=== PATIENT | female | born 1965 | race African-American/Black ===

== ENCOUNTER 2024-08-31 14:17 | Emergency (ER) | payer SELFPAY ==
[2024-08-31 14:28] VITALS: PULSE 65; RESP 18; TEMP 97.5
[2024-08-31 14:48] VITALS: O2SAT 95
[2024-08-31] MEDS: FAMOTIDINE 20 MG/2 ML VIAL IV ONE (15:38)
[2024-08-31] MEDS: ACETAMINOPHEN 325 MG TAB PO ONE (15:38)
[2024-08-31] MEDS: ONDANSETRON HCL INJ 2MG/ML 2ML 2 MG/ML VIAL IV PRN (15:38)
== END 2024-08-31 16:01 | disposition other institution (70) ==
LOC: FSED 14:22
DX: I63.9 Cerebral infarction, unspecified (principal); R29.810 Facial weakness; R47.81 Slurred speech; R53.1 Weakness; I10 Essential (primary) hypertension; F17.210 Nicotine dependence, cigarettes, uncomplicated
CPT/HCPCS: 70450; 80053; 85025; 85610; 93005; 94760; 99282; J1308; J2405